=== PATIENT | female | born 1965 | race Caucasian/White ===

== ENCOUNTER 2017-09-14 17:16 | Emergency (ER) | payer BC ==
[~2017-09-14] VITALS: Ht 170.2 cm; Wt 93.7 kg
[~2017-09-14 17:16] MED LIST: CHOL400C PO; LEVO25TA4 PO
[2017-09-14 17:22] VITALS: BP 131/89
== END 2017-09-14 18:09 | disposition home or self-care (01) ==
LOC: ED 18:04
DX: L03.012 Cellulitis of left finger (principal)
CPT/HCPCS: 99281

== ENCOUNTER → 2017-09-23 | Outpatient (CLI) | payer BC | END | disposition home or self-care (01) | LOC: WOUND 13:57 | PROVIDERS: ATTEND Family Medicine | DX: S56.12 Laceration of flexor muscle, fascia and tendon of other and unspecified finger at forearm level (principal); E03.9 Hypothyroidism, unspecified; Z87.891 Personal history of nicotine dependence; W45.8XXA Other foreign body or object entering through skin, initial encounter; Y93.9 Activity, unspecified; Y99.8 Other external cause status; Y92.9 Unspecified place or not applicable | CPT/HCPCS: 97597; 99215 ==

== ENCOUNTER → 2017-09-27 | Outpatient (CLI) | payer BC | END | disposition home or self-care (01) | LOC: WOUND 15:04 | PROVIDERS: ATTEND Nurse Practitioner Family | DX: S56.12 Laceration of flexor muscle, fascia and tendon of other and unspecified finger at forearm level (principal); E03.9 Hypothyroidism, unspecified; Z87.891 Personal history of nicotine dependence; X58.XXXD Exposure to other specified factors, subsequent encounter | CPT/HCPCS: 97597 ==

== ENCOUNTER → 2017-10-04 | Outpatient (CLI) | payer BC | END | disposition home or self-care (01) | LOC: WOUND 14:35 | PROVIDERS: ATTEND Nurse Practitioner Family | DX: S56.12 Laceration of flexor muscle, fascia and tendon of other and unspecified finger at forearm level (principal); E03.9 Hypothyroidism, unspecified; Z87.891 Personal history of nicotine dependence; X58.XXXD Exposure to other specified factors, subsequent encounter | CPT/HCPCS: 97597 ==

== ENCOUNTER → 2017-10-11 | Outpatient (CLI) | payer BC | END | disposition home or self-care (01) | LOC: WOUND 13:50 | PROVIDERS: ATTEND Nurse Practitioner Family | DX: S56.12 Laceration of flexor muscle, fascia and tendon of other and unspecified finger at forearm level (principal); E03.9 Hypothyroidism, unspecified; Z87.891 Personal history of nicotine dependence; X58.XXXD Exposure to other specified factors, subsequent encounter | CPT/HCPCS: 99214 ==

== ENCOUNTER → 2017-10-18 | Outpatient (CLI) | payer BC | END | disposition home or self-care (01) | LOC: WOUND 14:07 | PROVIDERS: ATTEND Nurse Practitioner Family | DX: S56.12 Laceration of flexor muscle, fascia and tendon of other and unspecified finger at forearm level (principal); E03.9 Hypothyroidism, unspecified; Z87.891 Personal history of nicotine dependence; X58.XXXD Exposure to other specified factors, subsequent encounter | CPT/HCPCS: 97597 ==

== ENCOUNTER → 2017-10-25 | Outpatient (CLI) | payer BC | END | disposition home or self-care (01) | LOC: WOUND 14:55 | PROVIDERS: ATTEND Nurse Practitioner Family | DX: S61.211D Laceration without foreign body of left index finger without damage to nail, subsequent encounter (principal); E03.9 Hypothyroidism, unspecified; F17.200 Nicotine dependence, unspecified, uncomplicated; W45.8XXD Other foreign body or object entering through skin, subsequent encounter | CPT/HCPCS: 99213 ==

== ENCOUNTER → 2017-11-02 | Outpatient (CLI) | payer BC | LOC: WOUND 09:45 | PROVIDERS: ATTEND Internal Medicine Cardiovascular Disease | DX: Z02.9 Encounter for administrative examinations, unspecified (principal) | CPT/HCPCS: 99213 ==

== ENCOUNTER → 2018-08-09 | Outpatient (CLI) | payer BC, OTHER | END | disposition home or self-care (01) | LOC: CFH 12:30 | PROVIDERS: ATTEND Nurse Practitioner Family | DX: Z12.31 Encounter for screening mammogram for malignant neoplasm of breast (principal) | CPT/HCPCS: 77063; 77067 ==

== ENCOUNTER 2018-12-30 18:11 | Emergency (ER) | payer BC, OTHER ==
[~2018-12-30] VITALS: Ht 170.2 cm; Wt 94.9 kg
[2018-12-30] MEDS ORDERED: MECLIZINE CHEWABLE 25 MG TAB ONE (19:26)
[2018-12-30] MEDS ORDERED: MECLIZINE CHEWABLE 25 MG TAB PO ONE (19:30)
[2018-12-30 19:33] VITALS: BP 148/82
--- NOTE | 2018-12-30 19:33 | NUR ---
Meds admin. VSS. Provided with rosalba.
[2018-12-30 20:00] LABS: BASOPHILS # (AUTO) 0.03 x10^3/uL (0-0.1); BASOPHILS % (AUTO) 0 % (0-1); EOSINOPHILS # (AUTO) 0.09 x10^3/uL (0-0.4); EOSINOPHILS % (AUTO) 1 % (1-7); LYMPHOCYTES # (AUTO) 2.88 x10^3/uL (1-3.4); LYMPHOCYTES % (AUTO) 39 % (22-44); MD NO; MEAN CORPUSCULAR HGB CONC 33.8 g/dL (32.4-35.8); MEAN CORPUSCULAR VOLUME 91.8 fL (80-100); MONOCYTES # (AUTO) 0.44 x10^3/uL (0.2-0.8); MONOCYTES % (AUTO) 6 % (2-9); NEUTROPHILS # (AUTO) 3.93 x10^3/uL (1.8-6.8); NEUTROPHILS % (AUTO) 53 % (42-75); PLATELET COUNT 168 x10^3/uL (130-400); RED BLOOD COUNT 4.99 x10^6/uL (3.82-5.3); RED CELL DISTRIBUTION WIDTH 13.4 % (9.6-15.2)
[2018-12-30 20:06] LABS: ALBUMIN 3.8 g/dL (3.4-5.0); ANION GAP 4 mmol/L (5-15); CALCIUM 8.7 mg/dL (8.5-10.1); CHLORIDE 110 mmol/L (98-107); CREATININE 0.72 mg/dL (0.55-1.02)
--- NOTE | 2018-12-30 20:15 | NUR ---
Patient report mild improvement in dizziness.
--- NOTE | 2018-12-30 20:49 | NUR ---
Patient/Caregiver given discharge instructions and they have confirmed that they understand the instructions. Patient ambulatory with steady gait.
== END 2018-12-30 20:50 | disposition home or self-care (01) ==
LOC: ED 20:16
DX: R42 Dizziness and giddiness (principal)
CPT/HCPCS: 36415; 70450; 80048; 82040; 84443; 85025; 93005; 99284

== ENCOUNTER 2019-01-01 16:25 | Emergency (ER) | payer BC, OTHER ==
[~2019-01-01] VITALS: Ht 170.2 cm; Wt 94.0 kg
--- NOTE | 2019-01-01 16:48 | NUR ---
PT PRESENTING TO ER FOR DIZZINESS AND BLURRED VISION WORSE IN LEFT EYE X4 DAYS, SEEN YESTERDAY FOR SAME WITHOUT CHANGE. WITH PT. LABS COLLECTED. PT TAKEN TO MRI.
[2019-01-01 16:59] LABS: BASOPHILS # (AUTO) 0.03 x10^3/uL (0-0.1); BASOPHILS % (AUTO) 0 % (0-1); EOSINOPHILS % (AUTO) 1 % (1-7); LYMPHOCYTES # (AUTO) 3.41 x10^3/uL (1-3.4); LYMPHOCYTES % (AUTO) 37 % (22-44); MD NO; MEAN CORPUSCULAR HGB CONC 33.6 g/dL (32.4-35.8); MONOCYTES # (AUTO) 0.77 x10^3/uL (0.2-0.8); MONOCYTES % (AUTO) 9 % (2-9); NEUTROPHILS % (AUTO) 53 % (42-75); PLATELET COUNT 168 x10^3/uL (130-400); RED BLOOD COUNT 5.12 x10^6/uL (3.82-5.3); RED CELL DISTRIBUTION WIDTH 13.8 % (9.6-15.2)
[2019-01-01 17:03] LABS: ALBUMIN 4.1 g/dL (3.4-5.0); ANION GAP 6 mmol/L (5-15); CALCIUM 9.2 mg/dL (8.5-10.1); CHLORIDE 107 mmol/L (98-107); CREATININE 0.72 mg/dL (0.55-1.02)
--- NOTE | 2019-01-01 17:21 | NUR ---
PIV ESTABLISHED BY MRI FOR CTA.
--- NOTE | 2019-01-01 17:23 | NUR ---
20G RT AC IV PLACED BY CT
[2019-01-01] MEDS ORDERED: OMNIPAQUE 350 MG/ML, 100ML BOTTLE ONE (17:25)
--- NOTE | 2019-01-01 18:05 | NUR ---
ALL RESULTS BACK AT THIS TIME, CHART UP FOR RECHECK
[2019-01-01 18:51] VITALS: BP 145/67
--- NOTE | 2019-01-01 19:11 | NUR ---
MD TO BEDSIDE TO UPDATE PT AND FAMIY ON POC
== END 2019-01-01 19:36 | disposition home or self-care (01) ==
LOC: ED 17:26
DX: R42 Dizziness and giddiness (principal); H53.8 Other visual disturbances
CPT/HCPCS: 36415; 70496; 70498; 70551; 80048; 82040; 85025; 93005; 99284; Q9967

== ENCOUNTER 2019-09-18 15:09 | Outpatient (CLI) | payer OTHER | END 2019-09-18 23:59 | disposition home or self-care (01) | LOC: CFH 15:09 | PROVIDERS: ATTEND Nurse Practitioner Primary Care | DX: M77.31 Calcaneal spur, right foot (principal); M79.671 Pain in right foot; R53.83 Other fatigue; E03.9 Hypothyroidism, unspecified; E78.2 Mixed hyperlipidemia; E55.9 Vitamin D deficiency, unspecified; F51.01 Primary insomnia; Z72.0 Tobacco use; G89.29 Other chronic pain; Z79.899 Other long term (current) drug therapy ==

== ENCOUNTER 2020-09-25 09:16 | Outpatient (CLI) | payer OTHER | END 2020-09-25 23:59 | disposition home or self-care (01) | LOC: CFH 09:16 | PROVIDERS: ATTEND Nurse Practitioner Primary Care | DX: Z12.31 Encounter for screening mammogram for malignant neoplasm of breast (principal) | CPT/HCPCS: 77063; 77067 ==